=== PATIENT | female | born 2005 | race Asian ===

== ENCOUNTER 2025-01-04 08:59 | Outpatient (AMB) | payer OTHER, SELFPAY ==
[2025-01-04 09:13] VITALS: BP 110/88; PULSE 110; TEMP 36.3; O2SAT 99; BMI 38.4
--- NOTE | 2025-01-04 09:13 | MHC.PC.OV ---
Vital Signs 01/04/25 09:13 Height 5 ft 1 in Weight 203 lb 6 oz BMI 38.4 BP 110/88 Blood Pressure Location Lt brachial Position Sitting Pulse 110 H Pulse Source Pulse Oximeter Temp 97.3 F Temp Source Temporal Artery Scan Pulse Oximetry (%) 99 Oxygen Delivery Method Room Air Intake Visit Reasons: Establish care Allergies No Known Allergies Allergy (Verified 01/04/25 09:29) Medication List - Last Reconciled 01/04/25 by Haleigh Lutz PA-C levothyroxine 112 mcg PO DAILY Tobacco use date assessed: 01/04/25 Dental Screening Dental Screen Date: 01/04/25 Did you have a dental visit in the last 12 months?: No Did you have a dental problem in the last 6 months where you did not have access to dental care?: No Was dental information given to patient?: No HPI Establish care HPI Details 19 year old female coming to the office for the first time. Presenting as a new patient for management of her thyroid condition, anxiety, and weight gain. The patient was originally diagnosed with hypothyroidism and started on levothyroxine. Subsequent lab testing in November revealed high thyroid hormone levels, indicating overcorrection, and her dose was lowered. The patient reports gaining 30 to 40 pounds in the last 2-3 years, which is a primary concern. She previously saw a director product management when being evaluated for PCOS, but this did not help with weight loss. The patient reports feeling very anxious for the last few weeks, which may be related to academic stress from midterms. Her depression screening was mildly positive, mostly related to difficulty sleeping. She has tried melatonin in the past with some success but does not use it regularly. News Video Editor: [facility]. 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 1. Little interest or pleasure in doing things: not at all 2. Feeling down, depressed, or hopeless: not at all 3. Trouble falling or staying asleep, or sleeping too much: several days 4. Feeling tired or having little energy: several days 5. Poor appetite or overeating: several days 6. Feeling bad about yourself - or that you are a failure or have let yourself or your family down: not at all 7. Trouble concentrating on things, such as reading the newspaper or watching television: not at all 8. Moving or speaking so slowly that other people could have noticed. Or the opposite - being so fidgety or restless that you have been moving around a lot more than usual: not at all 9. Thoughts that you would be better off or of hurting yourself in some way: not at all Total score: 3 Depression Screening Interpretation: Negative Depression Screening Done: Yes Source: Developed by Drs. Reynaldo Gandhi, Anat Tracey, Michel Lee and colleagues, with an educational maria l from dVisit. Thrive Questionnaire Date Thrive assessed: 01/04/25 I am a: Patient What is your living situation today?: I have a steady place to live Within the past 12 months, did the food you bought not last and you didn't have the money to get more?: Never true Within the past 12 months, did you worry whether your food would run out before you got money to buy more?: Never true Do you have trouble paying for medicines?: No Do you have trouble getting transportation to medical appointments?: No Do you have trouble paying your heating and electricity bill?: No Do you have trouble taking care of your child, family member or friend?: No Do you have trouble with day-to-day activities such as bathing, preparing meals, shopping, managing finances, etc.?: No Are you currently unemployed and looking for a job?: No Are you interested in more education?: No Please select the resources that you would like help with: None Currently or been in a relationship where the following occur: No concerns reported THRIVE Score: 0 AUDIT C Alcohol Use Questionnaire (AUDIT-C) 1. How often do you have a drink containing alcohol?: Never Total Score: 0 BRIE-7 AMB Questionnaire BRIE-7 Date BRIE - 7 assessed: 01/04/25 Feeling nervous, anxious, or on edge: 0 = Not at all Not being able to stop or control worryin = Not at all Worrying too much about different things: 0 = Not at all Trouble relaxin = Not at all Being so restless that it is hard to sit still: 0 = Not at all Becoming easily annoyed or irritable: 0 = Not at all Feeling afraid as if something awful might happen: 0 = Not at all Total BRIE-7 score (0-4 normal; 5-9 mild; 10-14 moderate; 15-21 severe): 0 Source: Developed by Drs. Reynaldo Gandhi, Anat Tracey, Michel Lee and colleagues, with an educational maria l from dVisit. Review of Systems Const Denies body aches, Denies chills, Denies fever(s), Denies headache(s) and Denies poor appetite Eyes Reports no additional complaints ENT Denies dysphagia, Denies dizziness, Denies headache(s) and Denies odynophagia Card Denies chest pain, Denies edema, Denies lightheadedness and Denies dyspnea Resp Denies dyspnea GI Denies abdominal pain, Denies dysphagia, Denies nausea, Denies odynophagia and Denies vomiting Reports no additional complaints Musc Reports no additional complaints and Denies abnormal gait Skin/Breast Reports system reviewed and no additional complaints, except as documented Neuro Denies abnormal gait, Denies dizziness and Denies headache(s) Psych Reports no additional complaints Physical exam (Primary Care) Vital Signs: Last Vital Signs Temp 97.3 F 01/04/25 09:13 Pulse 110 H 01/04/25 09:13 BP 110/88 01/04/25 09:13 Pulse Ox 99 01/04/25 09:13 Oxygen Delivery Method Room Air 01/04/25 09:13 BMI result Body Mass Index 38.4 Tobacco/Smoking Status: Tobacco use Status Tobacco use date assessed 01/04/25 01/04/25 09:17 Patient Tobacco Use Status Never used Tobacco 01/04/25 09:17 Tobacco use type Cigarette 01/04/25 09:17 e-Cigarette/Vaping Use Never Used 01/04/25 09:17 PHQ-9: PHQ-9 Score PHQ-9: Total score 3 01/04/25 09:24 Depression Screening Interpretation: Negative Thrive Assessment: Date of Thrive Assessment Date Thrive assessed 01/04/25 01/04/25 09:17 Currently or been in a relationship where the following occur: No concerns reported Const General: cooperative, healthy appearing, comfortable and no acute distress Orientation/consciousness: patient oriented x3 HENMT Head: Yes normocephalic Ears: hearing grossly normal bilaterally General nose exam: Normal external nose present Eyes General: appearance normal, both eyes and all related structures Conjunctivae: conjunctivae normal Neck Neck: Yes full ROM and Yes no lymphadenopathy Thyroid: Thyroid normal Resp Effort & Inspection: normal respiratory effort Auscultation: clear to auscultation bilaterally, no crackles, no rales, no rhonchi and no wheezes Cardio Rate: regular rate Rhythm: regular rhythm Skin General skin exam: no rashes or lesions noted Neuro General: patient oriented x3 Gait exam (Neuro): Normal gait present Extrem General: Yes normal to inspection, Yes full ROM and No edema Psych Affect: normal affect Attitude: cooperative Insight: Good insight present (Psych) Judgement: Good judgement present (Psych) Coding Level of Care Code New Pt Level 4 (13254) Diagnoses Hypothyroidism E03.9 Anxiety F41.9 Obesity (BMI 30-39.9) E66.9 Assessment & Plan Assessment & Plan (1) Hypothyroidism: Code(s): E03.9 - Hypothyroidism, unspecified Category: Medical Plan: The patient has a history of hypothyroidism that was treated with levothyroxine, which led to iatrogenic hyperthyroidism on her last lab test. Her symptoms of weight gain and hair loss are more consistent with hypothyroidism. Given her young age, an autoimmune cause is being considered. The plan is to repeat thyroid function tests and also order thyroid antibody tests. The levothyroxine dose will be adjusted based on the new results, with a plan to monitor TSH levels every 4 weeks until stable. (2) Anxiety: Code(s): F41.9 - Anxiety disorder, unspecified Category: Medical Plan: The patient reports a recent increase in anxiety, possibly related to academic stress, and also suffers from insomnia. The possibility of anxiety being secondary to her thyroid condition was noted. The patient would like to try medication. A prescription for escitalopram (Lexapro) was sent to her pharmacy, starting at a low dose. She was counseled on potential side effects and instructed to take the medication at bedtime. A referral will be made for counseling. Follow-up will occur in two months to assess her response to the medication. (3) Obesity (BMI 30-39.9): Code(s): E66.9 - Obesity, unspecified Category: Medical Plan: Healthy diet and regular exercise is encouraged. The patient is concerned about significant weight gain over the past few years and her family history of diabetes. The weight gain is likely multifactorial, with undertreated hypothyroidism being a significant contributing factor. The plan is to first optimize her thyroid hormone levels. A referral to a director product management was declined as the patient has tried this before without success. Pharmacotherapy options such as phentermine or injections were discussed as possibilities for the future after lab work and thyroid stabilization, with the caveat of potential insurance coverage issues. Orders: Orders TSH reflex Free T4 Today E03.9 - Hypothyroidism, unspecified, Z13.29 - Encounter for screening for other suspected endocrine disorder Thyrotropin Receptor Antibody Today E03.9 - Hypothyroidism, unspecified Vitamin D 25-OH Total Today Z13.21 - Encounter for screening for nutritional disorder Complete Blood Count Auto Diff Today Z13.0 - Encounter for screening for diseases of the blood and blood-forming organs and certain disorders involving the immune mechanism Comprehensive Met. Panel Today Z00.00 - Encounter for general adult medical examination without abnormal findings Thyroglobulin Antibodies Today E03.9 - Hypothyroidism, unspecified Thyroid Peroxidase Antibodies Today E03.9 - Hypothyroidism, unspecified Vitamin B12 and Folate Today Z13.21 - Encounter for screening for nutritional disorder Hemoglobin A1c Today Z13.1 - Encounter for screening for diabetes mellitus Referrals Counseling Referral F41.9 - Anxiety disorder, unspecified Medications: New escitalopram oxalate 5 mg PO DAILY 90 tabs 0RF
== END 2025-01-04 09:53 | disposition home or self-care (01) ==
LOC: HO.HMCH 08:59
DX: E03.9 Hypothyroidism, unspecified (principal); F41.9 Anxiety disorder, unspecified; E66.9 Obesity, unspecified; Z68.34 Body mass index [BMI] 34.0-34.9, adult

== ENCOUNTER → 2025-01-04 08:59 | Outpatient (BNVA) | payer OTHER, SELFPAY | DX: E03.9 Hypothyroidism, unspecified (principal); F41.9 Anxiety disorder, unspecified; E66.9 Obesity, unspecified; R94.01 Abnormal electroencephalogram [EEG]; G40.909 Epilepsy, unspecified, not intractable, without status epilepticus; Z13.31 Encounter for screening for depression; Z13.39 Encounter for screening examination for other mental health and behavioral disorders; Z79.899 Other long term (current) drug therapy | CPT/HCPCS: 96127; 99202 ==

== ENCOUNTER 2025-01-21 14:49 | Outpatient (REF) | payer OTHER, SELFPAY ==
--- NOTE | ~2025-01-21 | XR_ITS ---
EXAMINATION: XR CHEST CLINICAL INFORMATION: R06.02 - Shortness of breath COMPARISON: None available. TECHNIQUE: 2 views of the chest were obtained. FINDINGS: The cardiomediastinal silhouette is within normal limits. The lungs are well expanded. There is no focal consolidation, edema, or effusion. No pneumothorax. No acute osseous abnormality. XR/XR chest 2V IMPRESSION: No acute cardiopulmonary findings Electronically signed by: Sal Olsen MD 01/21/2025 04:40 PM EST
[2025-01-21 15:02] LABS: MANUAL DIFF FLAG NO
[2025-01-21 15:33] LABS: Hematocrit 38.4 % (37.0-47.0); Hemoglobin 11.9 g/dl (12.0-16.0); Imm Gran Abs Auto 0.06 X10*3/uL (0.00-0.03); Imm Gran Pct Auto 0.5 % (0.0-0.4); Lymphocytes Absolute Auto 3.7 X10*3/uL (1.2-4.9); Mean Corpuscular HGB Conc 31.0 g/dl (31.0-35.0); Mean Corpuscular Hemoglobin 26.2 pg (27.0-33.0); Mean Corpuscular Volume 84.6 fL (80.0-98.0); NRBC Abs Auto 0.000 X10*3/uL (0.0-0.012); NRBC Pct Auto 0.0 /100WBC (0.0-0.2); Platelet Count 351 X10*3/uL (160-400); Red Blood Count 4.54 X10*6/uL (4.20-5.50); White Blood Count 11.6 X10*3/uL (4.8-10.8)
[2025-01-21 19:05] LABS: Alanine Aminotransferase 16 U/L (0-31); Albumin Level 4.3 g/dL (3.5-5.0); Alkaline Phosphatase 92 U/L (39-117); Anion Gap 10 (12-20); Aspartate Amino Transferase 18 U/L (5-31); Blood Urea Nitrogen 14 mg/dL (9-16); Calcium 9.6 mg/dL (8.4-10.2); Carbon Dioxide 24 mmol/L (22-29); Chloride 108 mmol/L (96-108); Estimated Glomerular Filt Rate > 60; Potassium 4.3 mmol/L (3.3-5.1); Sodium 138 mmol/L (135-145); Total Protein 7.6 g/dL (6.5-8.0)
[2025-01-21 20:49] LABS: Free T4 (Free Thyroxine) 1.07 ng/dL (0.71-1.85)
[2025-01-22 00:20] LABS: Folate 7.5 ng/mL (> or = 4.0); Vitamin B12 224 pg/mL (200-900)
[2025-01-24 18:33] LABS: Thyroglobulin Antibodies <1 IU/mL (< or = 1)
== END 2025-01-21 14:50 | disposition home or self-care (01) ==
LOC: HO.XRAY 14:49
DX: Z00.00 Encounter for general adult medical examination without abnormal findings (principal); R06.02 Shortness of breath; E03.9 Hypothyroidism, unspecified; Z13.0 Encounter for screening for diseases of the blood and blood-forming organs and certain disorders involving the immune mechanism; Z13.29 Encounter for screening for other suspected endocrine disorder; Z13.21 Encounter for screening for nutritional disorder; Z13.1 Encounter for screening for diabetes mellitus
CPT/HCPCS: 36415; 71046; 80053; 82306; 82607; 82746; 83036; 83520; 84439; 84443; 85025; 86376; 86800

== ENCOUNTER 2025-01-25 11:22 | Outpatient (AMB) | payer OTHER, SELFPAY ==
[2025-01-25 12:18] VITALS: BP 124/60; PULSE 109; TEMP 36.9; O2SAT 100; BMI 39.1
--- NOTE | 2025-01-25 12:18 | AM.OFFWIN_ITS ---
Intake Vital Signs 01/25/25 12:18 Height 5 ft 1 in Weight 207 lb BMI 39.1 BP 124/60 Blood Pressure Location Rt brachial Position Sitting Pulse 109 H Pulse Source Pulse Oximeter Temp 98.4 F Temp Source Oral Pulse Oximetry (%) 100 Oxygen Delivery Method Room Air Intake Visit Reasons: EP, painful cyst that popped&bleeding Intake Note: pt presents with a painful and draining cyst in the groin area Patient Tobacco Use Status: Never used Tobacco Allergies No Known Allergies Allergy (Verified 01/25/25 12:20) Do you need a note to return to daycare/school/sports/work: Yes HPI HPI Comments History of Present Illness Details History of Present Illness - The patient is a 19 year old female pr esenting for evaluation of a painful cyst on her bottom. - She reports the cyst appeared two days ago on her left side of her labia and is very painful. - The cyst has started draining blood, a nd she is currently on her menstrual period. - Associated symptoms include feeling on the verge of a fever, though she denies any confirmed febrile episodes. - She has a history of similar cysts but has not had one in a few months. - She denies any history of MRSA infecti on or kidney problems. Review of Systems - General: Denies fever, but reports fee ling as if one is starting. - Integumentary: Reports a painful, drai shauna cyst present for two days. - Genitourinary: Reports being on her me nstrual period. - Psychiatric: Reports feeling anxious d ue to her condition. All systems reviewed and are unremarkable except as noted in HPI Physical Exam General: Cooperative, healthy appearing, comfortable, no acute distress and well developed Orientation: Patient oriented x3 Limitations: No limitations Head: Normal to inspection Ears: Cyst present in the left ear, hearing grossly normal bilaterally Nose: Normal External nose present Face and sinus: Normal facial exam Eyes: Appearance normal, both eyes and all related structures Neck: Normal visual inspection and Yes full ROM Respiratory: Normal respiratory effort and able to speak in complete sentences. Skin: 2cm x 0.75cm indurated deep abscess with slight erythema, area is very ttp and draining sanginous fluid, no purulence noted. 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 Cutaneous abscess - The patient has a large, deep, and indurated abscess in a location prone to infection, more on the upper leg/groin than in the area of a Barholin's gland infection. - Incision and drainage procedure was deferred due to the deep nature of the abscess and the high risk of further infection from fecal contamination if an open wound were created. - The plan is to start antibiotic treatment with doxycycline, taken twice a day. - A 10-day supply will be provided, with instructions to take it for at least 7 days and continue for the full 10 if symptoms persist. - For pain management, a prescription for meloxicam, a once-daily NSAID, was provided. - The patient was advised to apply ice or heat for comfort. - If the condition does not improve, she should follow up with her alternative energy engineer. - The patient's elevated heart rate of 109 bpm is attributed to pain and anxiety from her condition. - No further workup is planned at this time, as the tachycardia is expected to r esolve with treatment of the underlying pain and infection. Medications: New doxycycline hyclate 100 mg PO BID 20 tabs 0RF meloxicam 15 mg PO DAILY PRN 15 tabs 0RF pain, moderate Coding Level of Care Code Est Pt Level 3 (40848) Diagnoses Abscess L02.91
== END 2025-01-25 12:37 | disposition home or self-care (01) ==
PROVIDERS: Visit Provider Physician Assistant
DX: L02.91 Cutaneous abscess, unspecified (principal)

== ENCOUNTER → 2025-01-25 11:22 | Outpatient (BNVA) | payer OTHER, SELFPAY | PROVIDERS: Visit Provider Physician Assistant | DX: L02.91 Cutaneous abscess, unspecified (principal) | CPT/HCPCS: 99212 ==